=== PATIENT | female | born 1985 | race Caucasian/White ===

== ENCOUNTER → 2021-05-17 13:22 | Outpatient (CLI) | payer OTHER, SELFPAY ==
--- NOTE | 2021-05-17 | IMM_PTH ---
PATIENT: STEVE RODRIGUEZ LOC: [facility] U#:[id number] AGE/SX: 39/F ROOM: RE05/17/[address]: Dr. Damaso Quezada MD : 1985 BED: DIS: SPEC #: [id number] RECD: 05/19/21 12:51 STATUS: RADHA KEYUR #: [id number] SIMONE: 05/17/21 00:[address]: Damaso Quezada DEPT: IMMUNOHISTOCHEMISTRY RECD BY: Magdalena Simmons Tissues: Uterine cervix, NOS Procedures: p16 (initial) KI-67 (add) PHYSICIAN & INSTITUTION [place] [id number] SPECIMEN INFORMATION: Tissue Source: Cervical biopsy Clinical Info: N84.1 Specimen Number: [id number] CPT code: 67943, 73382 METHODOLOGY: Deparaffinized sections of prefer/formalin-fixed tissue or PAP/DQ stained slides are incubated with monoclonal/polyclonal antibodies/oligonucleotide probes. Localization is made via biotin free immunoperoxidase method. Appropriate controls are performed and reacted as expected. Results on target cell population are indicated in the following table: RESULTS: ANTIBODY / CLONE RESULT P16 (E6H4) negative Ki-67 (30-9) negative These tests were developed and their performance characteristics determined by [facility]. They may not have been cleared or approved by the [place] Food and Drug Administration. The FDA has determined that such clearance or approval is not necessary. The above immunohistochemical/dualISH markers are ordered and reviewed by the Pathologist. INTERPRETATION: Cervical biopsy: No evidence of HPV change. AM:isha 05/22/2021
--- NOTE | 2021-05-17 15:45 | CER_PTH ---
PATIENT: STEVE RODRIGUEZ LOC: [facility] U#:[id number] AGE/SX: 39/F ROOM: RE05/17/[address]: Dr. Damaso Quezada MD : 1985 BED: DIS: SPEC #: [id number] RECD: 05/17/21 15:49 STATUS: RADHA WILKINSONSom #: [id number] SIMONE: 05/17/21 15:[address]: Damaso Quezada DEPT: SURGICAL PATHOLOGY RECD BY: Adriana Arrieta Tissues: Uterine cervix, NOS Procedures: Surgery Specimen Level IV HEADER OPERATION: Cervical biopsy PRE-OP DIAGNOSIS: N84.1 TISSUE SUBMITTED: Cervical biopsy MICROSCOPIC DIAGNOSIS Cervix, biopsy: Polypoid fragments of benign squamous mucosa. Abundant proteinaceous debris with calcific change. See comment. AM:isha 05/19/2021 COMMENT Results from immunohistochemistry ([id number]) for surrogate HPV marker (p16) will be reported separately. MICROSCOPIC DESCRIPTION Slides are reviewed. GROSS DESCRIPTION Received in fixative is one container labeled with the patient's name and designated cervical biopsy. The specimen consists of multiple irregular fragments of light sims soft tissue that in aggregate measure 2 x 0.5 x 0.1 cm. The specimen is totally submitted in one cassette. / SJ:rg 05/18/21 TC:5 CPT: 37640
[2021-05-22 14:35] LABS: HPV Reflexed? NOT INDICATED
== END ==
PROVIDERS: Visit Provider Obstetrics & Gynecology
DX: Z12.4 Encounter for screening for malignant neoplasm of cervix (principal); N84.1 Polyp of cervix uteri
CPT/HCPCS: 88175; 88305; 88341; 88342; G0145

== ENCOUNTER → 2025-07-05 | Outpatient (CLI) | payer OTHER, SELFPAY ==
[2025-07-05 18:06] LABS: Hematocrit 40.1 % (37-47); Hemoglobin 13.0 g/dL (12.0-15.0); Immature Granulocytes Count 0.020 X10^3/uL (0.0-0.0); Mean Corp Hgb Conc 32.4 g/dL (32-36); Mean Corpuscular Volume 89.9 fL (81-99); Mean Platelet Vol. 10.5 fl (6.2-12.0); NRBC Flagged by Analyzer 0 % (0-5); Platelet Count 350 K/mm3 (150-450); RBC Distribution Width CV 13.1 % (11.6-14.6); RBC Distribution Width SD 43.3 fl (35.1-43.9); Red Blood Count 4.46 M/mm3 (4.2-5.4); White Blood Count 7.6 K/mm3 (4.4-11.0)
[2025-07-05 19:23] LABS: AST(SGOT) 19 U/L (<=31); Alanine Aminotransfer ALT/SGPT 22 U/L (<=34); Albumin, Serum 4.5 g/dL (3.5-5.0); Alkaline Phosphatase 59 U/L (35-104); Anion Gap 15 (5-15); BUN 12 mg/dL (4-19); BUN/Creat Ratio 12.8 RATIO (10-20); Calcium,Total 10.0 mg/dL (7.6-11.0); Carbon Dioxide 22.7 mmol/L (21.0-32.0); Chloride 104 mmol/L (98-108); Cholesterol 130 mg/dL (<=200); Ferritin 39 ng/mL (22-378); Globulin 2.6 g/dL (2.2-4.2); Glucose 89 mg/dL (70-99); Low Density Lipoprotein Calc. 40 mg/dL; Potassium 3.9 mmol/L (3.3-5.1); Triglycerides 87 mg/dL; Very Low Density Lipoprotein 17 mg/dL (5-40); cholesterol:hdl ratio screen 1.80
[2025-07-05 19:39] LABS: Iron 51 ug/dL (50-170)
[2025-07-06 20:13] LABS: Free T3 3.1 pg/mL (2.18-3.98)
[2025-07-08 16:09] LABS: Thyroglobulin, Serum Qt. 10.9 ng/mL (1.5-38.5)
[2025-07-09 04:07] LABS: PROGESTERONE 2.0 ng/mL (.)
== END | disposition home or self-care (01) ==
LOC: LABSPEC 17:14
PROVIDERS: Visit Provider Nurse Practitioner Family
DX: N94.6 Dysmenorrhea, unspecified (principal); R53.83 Other fatigue; N94.10 Unspecified dyspareunia; R61 Generalized hyperhidrosis; K59.00 Constipation, unspecified; K21.9 Gastro-esophageal reflux disease without esophagitis; R63.5 Abnormal weight gain; R00.2 Palpitations
CPT/HCPCS: 80053; 80061; 82627; 82670; 82728; 83036; 83540; 84144; 84403; 84432; 84439; 84443; 84481; 85025; 86376; 86800; 82626